=== PATIENT | female | born 1985 | race Caucasian/White ===

== ENCOUNTER 2017-06-28 13:40 | Emergency (ER) | payer BC ==
[2017-06-28 14:25] VITALS: BP 162/74; PULSE 114; RESP 22; TEMP 102.1
[2017-06-28] MEDS ORDERED: IBUPROFEN 600 MG TAB PO STA (14:26)
--- NOTE | 2017-06-28 14:45 | ED ---
General Adult HPI - General Chief complaint: Fever Stated complaint: vomiting/fever Time Seen by Provider: 06/28/17 14:39 Source: patient, RN notes reviewed Mode of arrival: ambulatory Limitations: no limitations - History of Present Illness Initial comments: 31-year-old female presents to the emergency Department chief complaint of cough cold like symptoms. Patient has had cough cold bodyaches nausea vomiting since yesterday. Her child a similar like symptoms. She states that she just does not feel well so she thought that she should be evaluated. She states she has had a fever with this. There is been no diarrhea. She states that she is not currently having any other symptoms at this time. Patient denies any recent shortness of breath, chest pain, back pain, abdominal pain, numbness or tingling , dysuria or hematuria, constipation or diarrhea, headaches or visual changes, or any other current symptoms. - Related Data Home Medications Medication Instructions Recorded Confirmed Acetaminophen Tab [Tylenol Tab] 1,000 mg PO Q6H PRN 06/28/17 06/28/17 Previous Rx's Medication Instructions Recorded Amoxicillin 500 mg PO Q8H #21 capsule 06/28/17 Allergies Allergy/AdvReac Type Severity Reaction Status Date / Time No Known Allergies Allergy Verified 06/28/17 15:17 Review of Systems ROS Statement: Those systems with pertinent positive or pertinent negative responses have been documented in the HPI. ROS Other: All systems not noted in ROS Statement are negative. Past Medical History Past Medical History: No Reported History History of Any Multi-Drug Resistant Organisms: None Reported Past Surgical History: No Surgical Hx Reported Past Psychological History: No Psychological Hx Reported Smoking Status: Never smoker Past Alcohol Use History: None Reported Past Drug Use History: None Reported General Exam - General Exam Comments Initial Comments: General exam: Alert, active, comfortable in no apparent distress Head: Normocephalic Eyes: Normal reaction of pupils, equal size, normal range of extraocular motion Ears: normal external ear canals, pink tympanic membranes with normal cone of light Nose: clear with pink turbinates Throat: erythema no exudates with enlarged sized tonsils Neck: no masses, no nuchal rigidity Chest: no chest wall deformity Lungs: equal air entry with no crackles or wheeze CVS: S1 and S2 normal with no audible mumurs, regular rhythm Abdomen: no hepatosplenomegaly, normal bowel sounds, no guarding or rigidity Spine: no scoliosis or deformity Skin: no rashes Neurological: No focal deficits, tone is normal in all 4 extremities Limitations: no limitations Course Vital Signs 06/28/17 14:22 Temperature 102.1 F H Pulse Rate 114 H Respiratory 22 Rate Blood Pressure 162/74 O2 Sat by Pulse 97 Oximetry Medical Decision Making - Medical Decision Making 31-year-old female presents for cough cold and congestion. At this time patient is positive for strep. This and we'll start her on antibiotics. We discussed follow-up return parameters all questions. Mother stated that she understood she is agreement this plan. All questions have been answered. They will be discharged. - Lab Data Lab Results 06/28/17 06/28/17 Range/Units 14:32 15:13 Influenza Type A RNA Not Detected (Not Detectd) Influenza Type B (PCR) Not Detected (Not Detectd) Group A Strep Rapid Positive A (Negative) - Radiology Data Radiology results: report reviewed, image reviewed Disposition Clinical Impression: Strep pharyngitis Disposition: HOME SELF-CARE Condition: Stable Instructions: Strep Throat (ED) Additional Instructions: Please use medication as discussed. Please follow up with family doctor if symptoms have not improved over the next two days. Please return to the emergency room if your symptoms increase or worsen or for any other concerns. Prescriptions: Amoxicillin 500 mg PO Q8H #21 capsule Referrals: Rosalio Guallpa MD [Primary Care Provider] - 1-2 days Time of Disposition: 15:38
--- NOTE | 2017-06-28 14:57 | XR ---
EXAMINATION TYPE: XR chest 2V DATE OF EXAM: 06/28/2017 COMPARISON: NONE HISTORY: Chest pain TECHNIQUE: Frontal and lateral views of the chest are obtained. FINDINGS: There is no focal air space opacity. No evidence for pneumothorax. No pleural effusion. The cardiac silhouette size is within normal limits. The osseous structures are grossly intact. IMPRESSION: 1. No acute cardiopulmonary process.
== END 2017-06-28 15:46 | disposition home or self-care (01) ==
LOC: EC 13:40
DX: J02.0 Streptococcal pharyngitis (principal); R11.2 Nausea with vomiting, unspecified
CPT/HCPCS: 71046; 87430; 87502; 99283

== ENCOUNTER → 2018-09-07 | Outpatient (CLI) | payer BC ==
--- NOTE | 2018-09-07 14:42 | CONS ---
CONSULTATION DATE OF SERVICE: 09/07/2018 A 33-year-old lady who has been [facility] for excessive daytime sleepiness and snoring. HISTORY OF PRESENT ILLNESS/SLEEP-WAKE EVALUATION: Patient's usual sleep schedule on working days from 10 p.m. to 7:15 a.m. and on weekends from around 10 - 11 p.m. until 7:15 a.m. No problems with falling asleep. No TV in bedroom. Patient usually sleeps on the stomach position with loud snoring and awakenings from sleep two times with one episode of nocturia. Patient has positive history of jerking movements of legs and ankles a check in sleep, which may wake up patient from sleep. No history of hypnagogic hallucinations, sleep paralysis or cataplexy. Otis Sleepiness Scale is 11. Patient occasionally takes nap early evening. PAST MEDICAL HISTORY: Positive for iron deficiency anemia and recently she has been told about increasing level of blood sugar. PAST SURGICAL HISTORY: None. SOCIAL HISTORY: Negative for smoking. Alcohol consumption occasional. FAMILY HISTORY: Positive for hyperlipidemia, sinus problems and acid reflux, anemia, and ovarian cancer. REVIEW OF SYSTEMS: Awakenings from sleep, sleepiness during the day. PHYSICAL EXAM: lady without distress BP 131/83, HR 92, RR 16, height 5 feet 3 inches, weight 256.8 pounds with the mass index 45.3, temperature 97.9 oxygen saturation at room air 96% oropharynx low position of soft palate. Mallampati 3. Tonsils present wide pillars. ABDOMEN: Obese. IMPRESSION: 1. Snoring, awakenings from sleep with nocturia, small oropharyngeal air space, sleepiness, obstructive sleep apnea-hypopnea syndrome 2 obesity, body mass index 45.33, history of iron deficiency anemia. 2. The differential diagnosis also showed include hypersomnia, if sleep study will be negative for obstructive sleep apnea-hypopnea syndrome. PLAN: 1. Home sleep apnea test for evaluation of patient's breathing during sleep to see if a sleep study will be negative polysomnogram with falling multiple sleep latency test. 2. Losing weight for sleep hygiene in the exam bed for 7 of 8 hours. 3. No driving if feeling sleepiness thank you very much for referring this patient for consultation sincerely main. MMODL / IJN: [id number] /
== END | disposition home or self-care (01) ==
LOC: SLEEP 13:18
PROVIDERS: ATTEND Internal Medicine
DX: G47.33 Obstructive sleep apnea (adult) (pediatric) (principal); E66.9 Obesity, unspecified; Z68.42 Body mass index [BMI] 45.0-49.9, adult; Z86.79 Personal history of other diseases of the circulatory system
CPT/HCPCS: 99211

== ENCOUNTER 2019-02-26 09:46 | Emergency (ER) | payer BC ==
[2019-02-26] MEDS ORDERED: IPRATROPIUM-ALBUTEROL 3 ML NEB INHALATION STA (10:23)
--- NOTE | 2019-02-26 10:44 | ED ---
General Adult HPI - General Chief complaint: Upper Respiratory Infection Stated complaint: cough, congestion Time Seen by Provider: 02/26/19 10:05 Source: patient, RN notes reviewed Mode of arrival: ambulatory Limitations: no limitations - History of Present Illness Initial comments: 33-year-old female presents to the emergency department for a chief complaint of cough. Patient states she has had a cough for about 5 days. States it is nonproductive in nature but feels like it is deep. Denies any shortness of breath or chest pain. States that she was seen at urgent care 3 days ago and told it was ALLERGIES. Patient denies any congestion sore throat or runny nose. Does states she has had intermittent fevers at home over the past several days up to 101. Denies any history of smoking or asthma.Patient has no other complaints at this time including shortness of breath, chest pain, abdominal pain, nausea or vomiting, headache, or visual changes. - Related Data Home Medications Medication Instructions Recorded Confirmed Dm/Acetaminophen/Doxylamine [Vicks 10 ml PO Q4H PRN 02/26/19 02/26/19 Nyquil Cold-Flu Liquid] Ibuprofen [Motrin Ib] 600 mg PO Q6H PRN 02/26/19 02/26/19 Promethaz-Cod 6.25-10 mg/5 ml 5 ml PO Q4HR PRN 02/26/19 02/26/19 [Phenergan with Codeine] Previous Rx's Medication Instructions Recorded Azithromycin [Zithromax Z-pack] 250 mg PO DIRECTED #6 tab 02/26/19 Allergies Allergy/AdvReac Type Severity Reaction Status Date / Time No Known Allergies Allergy Verified 02/26/19 10:08 Review of Systems ROS Statement: Those systems with pertinent positive or pertinent negative responses have been documented in the HPI. ROS Other: All systems not noted in ROS Statement are negative. Past Medical History Past Medical History: No Reported History History of Any Multi-Drug Resistant Organisms: None Reported Past Surgical History: No Surgical Hx Reported Past Psychological History: No Psychological Hx Reported Smoking Status: Never smoker Past Alcohol Use History: None Reported Past Drug Use History: None Reported General Exam Limitations: no limitations General appearance: alert, in no apparent distress Head exam: Present: atraumatic, normocephalic, normal inspection Eye exam: Present: normal appearance, PERRL, EOMI. Absent: scleral icterus, conjunctival injection, periorbital swelling ENT exam: Present: normal exam, mucous membranes moist Neck exam: Present: normal inspection, full ROM. Absent: tenderness, meningismus, lymphadenopathy Respiratory exam: Present: decreased breath sounds (Minimal decrease in breath sounds bilaterally). Absent: respiratory distress, wheezes, rales, rhonchi, stridor Cardiovascular Exam: Present: regular rate, normal rhythm, normal heart sounds. Absent: systolic murmur, diastolic murmur, rubs, gallop, clicks Neurological exam: Present: alert Psychiatric exam: Present: normal affect, normal mood Course Vital Signs 02/26/19 02/26/19 02/26/19 10:01 10:30 10:39 Temperature 98.3 F Pulse Rate 90 92 88 Respiratory 16 Rate Blood Pressure 126/90 O2 Sat by Pulse 97 Oximetry 02/26/19 10:43 Temperature Pulse Rate Respiratory 18 Rate Blood Pressure O2 Sat by Pulse Oximetry Medical Decision Making - Medical Decision Making 33-year-old female presents for a chief, of cough 5 days. Nonproductive in nature but does have intermittent fevers on and off at home. Patient is af ebrile here in the emergency room. Vitals are stable. Patient is 97% on room air with a pulse rate of 90. No fever. Patient denies any shortness of breath or chest pain whatsoever. Denies any past medical history or immunocompromised states. On exam patient does have some breath sounds decreased bilaterally. Exam is otherwise unremarkable. Chest x-ray shows a basilar left lower lobe pneumonia, reported and image were reviewed. Patient was given IM Rocephin here in the emergency department and prescribed azithromycin outpatient. Discussed Motrin and Tylenol for fever. Discussed resting and drinking plenty of fluids. Patient will follow up with primary care in 1-2 days or return here if she has any worsening symptoms. I discussed this case with attending Dr. Lorenzana who agrees with this assessment and treatment plan. Disposition Clinical Impression: Left lower lobe pneumonia Disposition: HOME SELF-CARE Condition: Good Instructions (If sedation given, give patient instructions): Pneumonia (ED) Additional Instructions: Please take antibiotic as directed. Take Motrin and Tylenol for fever. Follow- up with primary care in 1-2 days. Return to the emergency department if you have any worsening symptoms. Prescriptions: Azithromycin [Zithromax Z-pack] 250 mg PO DIRECTED #6 tab Is patient prescribed a controlled substance at d/c from ED?: No Referrals: Rosalio Guallpa MD [Primary Care Provider] - 1-2 days Time of Disposition: 11:36
--- NOTE | 2019-02-26 10:51 | XR ---
EXAMINATION TYPE: XR chest 2V DATE OF EXAM: 02/26/2019 COMPARISON: 06/28/2017 HISTORY: 33-year-old female cough and congestion, rule out pneumonia TECHNIQUE: PA and lateral views FINDINGS: The cardiomediastinal silhouette, aorta, and pulmonary vasculature are within normal limits. There is posterior basilar left lower lobe consolidation. No pleural effusion. IMPRESSION: Basilar left lower lobe pneumonia.
[2019-02-26] MEDS ORDERED: cefTRIAXone 1,000 MG VIAL (IM USE) IM STA (11:05)
[2019-02-26 12:56] VITALS: BP 121/81; PULSE 99; RESP 20; TEMP 99.9
== END 2019-02-26 12:55 | disposition home or self-care (01) ==
LOC: EC 09:46
DX: J18.9 Pneumonia, unspecified organism (principal)
CPT/HCPCS: 94640; 71046; 96372; 99283; J0696

== ENCOUNTER → 2019-12-25 | Outpatient (CLI) | payer BC | END | disposition home or self-care (01) | LOC: LABWHC1 08:09 | PROVIDERS: ATTEND Physician Assistant | DX: Z20.828 Contact with and (suspected) exposure to other viral communicable diseases (principal) | CPT/HCPCS: 36415; 86769 ==

== ENCOUNTER 2021-03-19 02:52 | Emergency (ER) | payer BC ==
[2021-03-19 03:05] VITALS: TEMP 98.3
[2021-03-19 03:46] LABS: Basophils % (A) 0 %; Eosinophils # (A) 0.2 k/uL (0-0.7); Eosinophils % (A) 2 %; HCT 37.4 % (34.0-46.0); HGB 12.3 gm/dL (11.4-16.0); Lymphocytes # (A) 2.4 k/uL (1.0-4.8); Lymphocytes % (A) 19 %; MCH 24.5 pg (25.0-35.0); MCHC 32.9 g/dL (31.0-37.0); MCV 74.4 fL (80.0-100.0); Mean Platelet Volume 7.9; Microcytosis Slight; Monocytes # (A) 0.6 k/uL (0-1.0); Monocytes % (A) 5 %; Neutrophils # (A) 9.5 k/uL (1.3-7.7); Neutrophils % (A) 74 %; Platelet Count 373 k/uL (150-450); RBC 5.02 m/uL (3.80-5.40); RDW 15.4 % (11.5-15.5)
[2021-03-19 03:54] LABS: Appearance,Urine Cloudy (Clear); Bacteria,Urine Occasional /hpf; Bilirubin,Urine Negative (Negative); Blood,Urine Moderate (Negative); Color,Urine Yellow; Glucose,Urine (UA) 4+ (Negative); Ketones,Urine 1+ (Negative); Leukocyte Esterase,Urine Large (Negative); Mucus,Urine Occasional /hpf; Nitrite,Urine Negative (Negative); PH, Urine 5.5 (5.0-8.0); Protein,Urine 1+ (Negative); RBC,Urine 74 /hpf (0-5); Specific Gravity,Urine 1.015 (1.001-1.035); Squamous Epithelial Cell,Urine 3 /hpf (0-4); Urobilinogen,Urine <2.0 mg/dL (<2.0); WBC,Urine >182 /hpf (0-5)
[2021-03-19 04:42] LABS: ALT 40 U/L (4-34); AST 71 U/L (14-36); African American GFR (CKD) >90 (>60 ml/min/1.73 sqM); Albumin 4.4 g/dL (3.5-5.0); Alkaline Phosphatase 93 U/L (38-126); Amylase 54 U/L (30-110); Anion Gap 13 mmol/L; Blood Urea Nitrogen 10 mg/dL (7-17); Calcium 9.7 mg/dL (8.4-10.2); Carbon Dioxide 20 mmol/L (22-30); Chloride 103 mmol/L (98-107); Glucose 303 mg/dL (74-99); Lipase 116 U/L (23-300); Non-African American GFR(CKD) >90 (>60 ml/min/1.73 sqM); Potassium 4.8 mmol/L (3.5-5.1); Sodium 136 mmol/L (137-145); Total Bilirubin 0.7 mg/dL (0.2-1.3); Total Protein 8.4 g/dL (6.3-8.2)
[2021-03-19 04:45] VITALS: PULSE 91; RESP 20
--- NOTE | 2021-03-19 05:01 | ED ---
Abdominal Pain HPI - General Chief Complaint: Abdominal Pain Stated Complaint: Rt Side Pain Time Seen by Provider: 03/19/21 03:09 Source: patient Mode of arrival: ambulatory - Related Data Home Medications Medication Instructions Recorded Confirmed Dm/Acetaminophen/Doxylamine [Vicks 10 ml PO Q4H PRN 02/26/19 02/26/19 Nyquil Cold-Flu Liquid] Ibuprofen [Motrin Ib] 600 mg PO Q6H PRN 02/26/19 02/26/19 Promethaz-Cod 6.25-10 mg/5 ml 5 ml PO Q4HR PRN 02/26/19 02/26/19 [Phenergan with Codeine] Previous Rx's Medication Instructions Recorded Azithromycin [Zithromax Z-pack (6 250 mg PO DIRECTED #6 tab 02/26/19 tabs)] Cephalexin [Keflex] 500 mg PO Q6HR #28 cap 03/19/21 Allergies Allergy/AdvReac Type Severity Reaction Status Date / Time No Known Allergies Allergy Verified 03/19/21 03:05 Review of Systems ROS Statement: Those systems with pertinent positive or pertinent negative responses have been documented in the HPI. ROS Other: All systems not noted in ROS Statement are negative. Past Medical History Past Medical History: No Reported History, Pneumonia History of Any Multi-Drug Resistant Organisms: None Reported Past Surgical History: No Surgical Hx Reported Past Psychological History: No Psychological Hx Reported Smoking Status: Never smoker Past Alcohol Use History: None Reported Past Drug Use History: None Reported Course Vital Signs 03/19/21 03/19/21 03/19/21 02:53 04:05 04:44 Temperature 98.3 F Pulse Rate 105 H 91 91 Respiratory 16 20 20 Rate Blood Pressure 131/91 136/76 160/95 O2 Sat by Pulse 95 96 95 Oximetry Medical Decision Making - Lab Data Result diagrams: 03/19/21 03:33 Lab Results 03/19/21 03/19/21 03/19/21 Range/Units 03:20 03:20 03:33 WBC 13.0 H (3.8-10.6) k/uL RBC 5.02 (3.80-5.40) m/uL Hgb 12.3 (11.4-16.0) gm/dL Hct 37.4 (34.0-46.0) % MCV 74.4 L (80.0-100.0) fL MCH 24.5 L (25.0-35.0) pg MCHC 32.9 (31.0-37.0) g/dL RDW 15.4 (11.5-15.5) % Plt Count 373 (150-450) k/uL MPV 7.9 Neutrophils % 74 % Lymphocytes % 19 % Monocytes % 5 % Eosinophils % 2 % Basophils % 0 % Neutrophils # 9.5 H (1.3-7.7) k/uL Lymphocytes # 2.4 (1.0-4.8) k/uL Monocytes # 0.6 (0-1.0) k/uL Eosinophils # 0.2 (0-0.7) k/uL Basophils # 0.0 (0-0.2) k/uL Microcytosis Slight Urine Color Yellow Urine Appearance Cloudy H (Clear) Urine pH 5.5 (5.0-8.0) Ur Specific Buena 1.015 (1.001-1.035) Urine Protein 1+ H (Negative) Urine Glucose (UA) 4+ H (Negative) Urine Ketones 1+ H (Negative) Urine Blood Moderate H (Negative) Urine Nitrite Negative (Negative) Urine Bilirubin Negative (Negative) Urine Urobilinogen <2.0 (<2.0) mg/dL Ur Leukocyte Esterase Large H (Negative) Urine RBC 74 H (0-5) /hpf Urine WBC >182 H (0-5) /hpf Urine WBC Clumps Many H (None) /hpf Ur Squamous Epith Cells 3 (0-4) /hpf Urine Bacteria Occasional H (None) /hpf Urine Mucus Occasional H (None) /hpf Urine HCG, Qual Not Detected (Not Detectd) Disposition Clinical Impression: Urinary tract infection Disposition: HOME SELF-CARE Condition: Good Prescriptions: Cephalexin [Keflex] 500 mg PO Q6HR #28 cap Is patient prescribed a controlled substance at d/c from ED?: No Referrals: Rosalio Guallpa MD [Primary Care Provider] - 1-2 days
[2021-03-19 05:49] VITALS: BP 134/78
== END 2021-03-19 05:49 | disposition home or self-care (01) ==
LOC: EC 02:52
DX: N39.0 Urinary tract infection, site not specified (principal)
CPT/HCPCS: 99284; 96365; 36415; 80053; 82150; 83690; 85025; 81001; 81025; J0696

== ENCOUNTER → 2021-08-29 | Outpatient (CLI) | payer BC ==
--- NOTE | 2021-08-31 10:12 | BMR ---
EXAMINATION TYPE: MR breast BILAT wo/w con DATE OF EXAM: 08/29/2021 COMPARISON: None. HISTORY: Z15.01 BRCA gene mutation test positive TECHNIQUE: A series of fat and water weighted images in the long and short axis views of both breasts are obtained in conjunction with dynamic contrast MRI with subtraction technique. The patient was i njected with 11 mL intravenous Gadavist gadolinium contrast. Three-dimensional and additional postp rocessing imaging is created on independent workstation and reviewed during official interpretation o f this study. FINDINGS: Breast tissue predominantly fatty replaced. Symmetric prominent bilateral axillary lymph no iva are identified but they retain central fatty hilum without suspicious cortical thickening. No sig nificant cystic change or focal fluid collection on T2 or STIR-weighted images. Postcontrast images s how mild symmetric background enhancement. Delayed dynamic imaging shows no suspicious internal mamma ry adenopathy. With regards to both breasts abnormal skin thickening is present. No pathologic enhancement or enhanc ing masses are present bilaterally. Chest wall is intact bilaterally. IMPRESSION: No MRI evidence for invasive malignancy in either breast. BI-RADS 1 negative study Recommendation: Advise continued annual MRI surveillance.
== END | disposition home or self-care (01) ==
LOC: RADMRIMAIN 07:59
PROVIDERS: ATTEND Physician Assistant
DX: Z15.01 Genetic susceptibility to malignant neoplasm of breast (principal)
CPT/HCPCS: 77049; C8937; A9585

== ENCOUNTER → 2023-08-22 | Outpatient (CLI) | payer BC ==
[2023-08-22] MEDS: SODIUM CHLORIDE 0.9% 500 ML 500 ML in EMPTY BAG 1 BAG IV PRN (09:31)
[2023-08-22] MEDS: IRON SUCROSE 200 MG in SODIUM CHLORIDE 0.9% 100 ML IVPB NR (09:32)
[2023-08-22 10:00] VITALS: BP 143/84; PULSE 77; RESP 16; TEMP 97.8
== END ==
LOC: PROCWHC3 09:13
PROVIDERS: ATTEND Physician Assistant
DX: D64.9 Anemia, unspecified (principal)
CPT/HCPCS: 96365; J1756

== ENCOUNTER → 2023-11-21 | Outpatient (CLI) | payer BC ==
[2023-11-21 11:58] VITALS: BP 149/88; PULSE 79; RESP 14; TEMP 98.2
[2023-11-21] MEDS: SODIUM CHLORIDE 0.9% 500 ML 500 ML in EMPTY BAG 1 BAG IV PRN (11:58)
[2023-11-21] MEDS: IRON SUCROSE 300 MG in SODIUM CHLORIDE 0.9% 250 ML IVPB NR (11:58)
== END ==
LOC: PROCWHC3 11:31
PROVIDERS: ATTEND Pediatrics
DX: D64.9 Anemia, unspecified (principal)
CPT/HCPCS: 96365; 96366; J1756